=== PATIENT | male | born 1965 | race Two or more races ===

== ENCOUNTER 2020-01-19 17:35 | Emergency (ER) | payer BC ==
[~2020-01-19] VITALS: Ht 170.2 cm; Wt 68.0 kg
--- NOTE | 2020-01-19 17:35 | NUR ---
PT [id number], C/O ABDOMINAL PAIN W/ N/V X 2 HOURS. PT IS AAOX3, NOT IN RESPIRATORY DISTRESS, HOOKED TO MONITOR, KEPT RESTED AND COMFORTABLE, WILL CONTINUE TO MONITOR.
--- NOTE | 2020-01-19 17:48 | NUR ---
DR VIEIRA AT BEDSIDE FOR EVAL.
[2020-01-19] MEDS ORDERED: ONDANSETRON HCL/PF - ER 4 MG/2 ML VIAL IV ONE (18:00)
[2020-01-19] MEDS ORDERED: MORPHINE SULFATE INJ 2 MG/ML DISP.SYRIN IV ONE (18:00)
--- NOTE | 2020-01-19 18:00 | NUR ---
IV LINE ESTABLISHED BLOOD DRAWN AND SENT TO LAB.
--- NOTE | 2020-01-19 18:00 | NUR ---
PT TO RADIOLOGY FOR ABDOMINAL CT SCAN VIA [facility].
[2020-01-19] MEDS ORDERED: ONDANSETRON HCL/PF 4 MG/2 ML VIAL ONE (18:01)
[2020-01-19] MEDS ORDERED: MORPHINE SULFATE INJ 2 MG/ML DISP.SYRIN ONE (18:01)
[2020-01-19 18:04] LABS: BASOPHILS % (AUTO) 0.3 % (0.0-2.0); EOSINOPHILS % (AUTO) 0.4 % (0.0-6.0); HEMATOCRIT 43 % (39-51); HEMOGLOBIN 14.6 g/dL (13.5-17.5); LYMPHOCYTES # (AUTO) 0.4 /CMM (0.8-4.8); LYMPHOCYTES % (AUTO) 3.8 % (20.0-44.0); MEAN CORPUSCULAR HGB CONC 34 g/dl (31.0-36.0); MEAN CORPUSCULAR VOLUME 88 fL (80-96); MONOCYTES # (AUTO) 0.4 /CMM (0.1-1.30); MONOCYTES % (AUTO) 3.3 % (2.0-12.0); NEUTROPHILS # (AUTO) 10.1 /CMM (1.8-8.9); NEUTROPHILS % (AUTO) 92.2 % (43.0-81.0); PLATELET COUNT (AUTO) 170 /CMM (150-450); RED BLOOD CELL COUNT(AUTO) 4.83 MIL/uL (4.5-6.0)
--- NOTE | 2020-01-19 18:04 | NUR ---
pain meds given as ordered
[2020-01-19 18:14] LABS: CALCIUM, SERUM 8.8 mg/dL (8.5-10.1); CREATININE 0.8 mg/dL (0.6-1.3)
[2020-01-19 18:25] LABS: ALBUMIN 4.2 g/dL (3.4-5.0); BILIRUBIN,DIRECT 0.1 mg/dL (0.0-0.2); BILIRUBIN,TOTAL 0.3 mg/dL (0.2-1.0); TOTAL PROTEIN, SERUM 7.3 g/dL (6.4-8.2)
[2020-01-19] MEDS ORDERED: KETOROLAC TROMETHAMINE INJ 30 MG/ML VIAL IV ONE (19:00)
[2020-01-19] MEDS ORDERED: KETOROLAC TROMETHAMINE INJ 30 MG/ML VIAL ONE (19:17)
--- NOTE | 2020-01-19 19:30 | NUR ---
REPORT GIVEN TO SALES SUPPORT MANAGER NURSE CARLOS FOR [facility]HAD.
[2020-01-19 22:21] VITALS: BP 124/84
--- NOTE | 2020-01-19 22:21 | NUR ---
Patient discharged to home in stable condition. Written and verbal after care instructions given. Patient verbalizes understanding of instruction.IV removed. Catheter intact and site benign. Pressure and 4x4 applied to site. No bleeding noted.
== END 2020-01-19 22:22 | disposition home or self-care (01) ==
LOC: ER 17:40
DX: N13.2 Hydronephrosis with renal and ureteral calculous obstruction (principal)
CPT/HCPCS: 74176; 80048; 80076; 83690; 85025; 96374; 96375; 99284; J1885; J2270; J2405 ×2; 36415